=== PATIENT | female | born 2000 | race Caucasian/White ===

== ENCOUNTER 2020-11-24 19:45 | Emergency (ER) | payer OTHER ==
[~2020-11-24] VITALS: Ht 165.1 cm; Wt 63.6 kg
[2020-11-24 19:50] VITALS: BP 145/82; TEMP 97.6
[2020-11-24] MEDS ORDERED: SINGULAIR 110 MG/TAB PO (20:08)
[2020-11-24] MEDS ORDERED: BREO ELLIPTA 21 EACH IH (20:08)
[2020-11-24 22:01] VITALS: PULSE 88
== END 2020-11-24 22:03 | disposition home or self-care (01) ==
LOC: COL.ER
DX: S09.90XA Unspecified injury of head, initial encounter (principal); S60.051A Contusion of right little finger without damage to nail, initial encounter; Z88.2 Allergy status to sulfonamides; Z88.1 Allergy status to other antibiotic agents; Z88.6 Allergy status to analgesic agent; V89.2XXA Person injured in unspecified motor-vehicle accident, traffic, initial encounter